=== PATIENT | male | born 1955 | race Caucasian/White ===

== ENCOUNTER → 2023-04-30 06:59 | Outpatient (REF) | payer MEDICARE, OTHER, SELFPAY ==
[2023-04-30 08:37] LABS: % Basophils 0.5 % (0-2); % Eosinophils 2.6 % (0-6); % Immature Granulocytes 0.3 % (0-0.5); % Lymphocytes 24.1 % (20.5-51.1); % Monocytes 8.8 % (1.7-9.3); % Neutrophils 63.7 % (42.2-75.2); Absolute Eosinophils 0.2 10^3/uL (0-0.7); Absolute Lymphocytes 1.5 10^3/uL (1.2-3.4); Absolute Monocytes 0.5 10^3/uL (0.1-0.6); Absolute Neutrophils 3.9 10^3/uL (1.4-6.5); Hematocrit 43.1 % (39.0-52.0); Hemoglobin 14.9 g/dL (13.0-18.0); Mean Corp Hgb Conc. 34.6 g/dL (33.0-37.0); Mean Corpuscular Hgb 30.7 pg (27.0-31.0); Mean Corpuscular Volume 88.9 fL (80.0-94.0); Mean Platelet Volume 12.5 fL (7.4-10.4); Nucleated Red Blood Cells % 0 % (-); Platelet Count 128 10^3/uL (130-400); Red Blood Cell Count 4.85 10^6/uL (4.70-6.10); White Blood Cell Count 6.2 10^3/uL (4.8-10.8)
[2023-04-30 08:46] LABS: ALT (SGPT) 22 U/L (0-50); AST (SGOT) 26 U/L (17-59); Alkaline Phosphatase 49 U/L (38-126); Blood Urea Nitrogen 16 mg/dl (9-20); Calcium 9.4 mg/dl (8.4-10.2); Carbon Dioxide 29 mmol/L (22-30); Chloride 102 mmol/L (98-107); Glucose 155 mg/dl (70-99); HDL Cholesterol 38 mg/dl; LDL Cholesterol, Calculated 78 mg/dl; Potassium 4.4 mmol/L (3.5-5.1); Sodium 138 mmol/L (135-145); Total Bilirubin 0.8 mg/dl (0.2-1.3); Total Cholesterol 140 mg/dl (50-199); Total Protein 6.6 g/dl (6.3-8.2); Triglyceride 122 mg/dl (10-149); Very Low Density Lipoprotein 24 mg/dl (0-30); eGFR 59.84
[2023-04-30 11:19] LABS: Glycohemoglobin (HgbA1c) 7.1 % (4.0-5.6)
== END ==
LOC: HWLAB 06:59
PROVIDERS: ATTENDING PHYSICIAN Internal Medicine Geriatric Medicine
DX: E11.9 Type 2 diabetes mellitus without complications (principal)
CPT/HCPCS: 36415; 80053; 80061; 83036; 85025

== ENCOUNTER → 2024-12-05 07:43 | Outpatient (REF) | payer MEDICARE, OTHER, SELFPAY ==
[2024-12-05 10:18] LABS: Hematocrit 44.7 % (39.0-52.0); Hemoglobin 15.1 g/dL (13.0-18.0); Mean Corp Hgb Conc. 33.8 g/dL (33.0-37.0); Mean Corpuscular Volume 90.3 fL (80.0-94.0); Nucleated Red Blood Cells % 0 % (-); Platelet Count 130 10^3/uL (130-400); Red Cell Dist. Width 12.9 % (11.5-14.5)
[2024-12-05 10:28] LABS: Urine Character Clear (Clear)
[2024-12-05 10:33] LABS: ALT (SGPT) 18 U/L (0-50); AST (SGOT) 20 U/L (17-59); Albumin 4.3 g/dl (3.5-5.0); Alkaline Phosphatase 43 U/L (38-126); Blood Urea Nitrogen 22 mg/dl (9-20); Calcium 9.3 mg/dl (8.4-10.2); Carbon Dioxide 30 mmol/L (22-30); Chloride 102 mmol/L (98-107); Glucose 133 mg/dl (70-99); HDL Cholesterol 49 mg/dl; LDL Cholesterol, Calculated 90 mg/dl; Potassium 4.2 mmol/L (3.5-5.1); Sodium 137 mmol/L (135-145); Total Protein 6.8 g/dl (6.3-8.2); Very Low Density Lipoprotein 15 mg/dl (0-30); eGFR > 60.00
[2024-12-05 10:57] LABS: Glycohemoglobin (HgbA1c) 6.4 % (4.0-5.6); Vitamin D, 25-OH*** 50.3 ng/mL (30-80)
[2024-12-05 11:10] LABS: TSH 3.20 uIU/ml (0.47-4.68)
== END ==
LOC: HWLAB 07:43
PROVIDERS: ATTENDING PHYSICIAN Internal Medicine Geriatric Medicine
DX: E11.9 Type 2 diabetes mellitus without complications (principal); G62.9 Polyneuropathy, unspecified; E78.5 Hyperlipidemia, unspecified; H81.399 Other peripheral vertigo, unspecified ear; H69.91 Unspecified Eustachian tube disorder, right ear; I62.9 Nontraumatic intracranial hemorrhage, unspecified; F41.8 Other specified anxiety disorders; Z13.89 Encounter for screening for other disorder; E55.9 Vitamin D deficiency, unspecified
CPT/HCPCS: 36415; 80053; 80061; 81003; 82306; 83036; 84443; 84681; 85025

== ENCOUNTER → 2025-01-22 10:19 | Outpatient (REF) | payer MEDICARE, OTHER, SELFPAY ==
[2025-01-22 11:30] LABS: Blood Urea Nitrogen 20 mg/dl (9-20); Calcium 10.2 mg/dl (8.4-10.2); Carbon Dioxide 32 mmol/L (22-30); Chloride 102 mmol/L (98-107); Glucose 106 mg/dl (70-99); Potassium 5.0 mmol/L (3.5-5.1); Sodium 137 mmol/L (135-145); eGFR > 60.00
[2025-01-22 11:59] LABS: PSA, Total - Screen 3.18 ng/ml (0.0-4.0)
== END ==
LOC: REG 10:19
PROVIDERS: ATTENDING PHYSICIAN Internal Medicine Geriatric Medicine
DX: Z00.00 Encounter for general adult medical examination without abnormal findings (principal); E11.9 Type 2 diabetes mellitus without complications; G62.9 Polyneuropathy, unspecified; E78.5 Hyperlipidemia, unspecified; H81.399 Other peripheral vertigo, unspecified ear; H69.91 Unspecified Eustachian tube disorder, right ear; I62.9 Nontraumatic intracranial hemorrhage, unspecified; F41.8 Other specified anxiety disorders; Z13.89 Encounter for screening for other disorder; R53.1 Weakness; E11.40 Type 2 diabetes mellitus with diabetic neuropathy, unspecified; R26.9 Unspecified abnormalities of gait and mobility; I69.354 Hemiplegia and hemiparesis following cerebral infarction affecting left non-dominant side; Z12.5 Encounter for screening for malignant neoplasm of prostate
CPT/HCPCS: 36415; 80048; G0103